=== PATIENT | male | born 1965 | race Caucasian/White ===

== ENCOUNTER 2023-12-23 03:35 | Inpatient (IN) | payer BC ==
[~2023-12-23] VITALS: Ht 177.8 cm; Wt 115.0 kg
[2023-12-23] VITALS (13 sets, daily range): BP systolic 108–148; BP diastolic 77–90; PULSE 53–110; RESP 9–32; TEMP 99.3; O2SAT 91–100
[2023-12-23 04:12] LABS: EOSINOPHILS # (AUTO) 0.1 X10'3 (0-0.9); MONOCYTES # (AUTO) 0.2 X10'3 (0-0.9); NEUTROPHILS # (AUTO) 1.3 X10'3 (1.8-7.7); PLATELET COUNT 64 X10'3 (140-440)
[2023-12-23 04:14] LABS: BASOPHILS % (AUTO) 0 % (0-1); EOSINOPHILS % (AUTO) 0.8 % (0-6); HEMATOCRIT 43.4 % (42.0-52.0); HEMOGLOBIN 14.1 g/dl (14.0-17.9); LYMPHOCYTES # (AUTO) 8.4 X10'3 (1.1-4.8); LYMPHOCYTES % (AUTO) 83.4 % (21-51); MEAN CORPUSCULAR HEMOGLOBIN 30.9 PG (27.0-31.0); MEAN CORPUSCULAR HGB CONC 32.4 g/dL (33.0-36.5); MEAN CORPUSCULAR VOLUME 95.2 FL (78-98); MEAN PLATELET VOLUME 9.1 FL (7.4-10.4); MONOCYTES % (AUTO) 2.4 % (2-12); NEUTROPHILS % (AUTO) 13.4 % (42-75); RED BLOOD COUNT 4.56 X10'6 (4.70-6.10); RED CELL DISTRIBUTION WIDTH 14.6 % (11.5-14.5)
[2023-12-23 04:20] LABS: ALBUMIN 2.4 G/DL (3.4-5.0); ANION GAP 17 (8-16); BLOOD UREA NITROGEN 10 MG/DL (7-18); BUN/CREATININE RATIO 5.9 (10.0-20.0); CALCIUM 8.6 MG/DL (8.5-10.1); CHLORIDE 108 MMOL/L (99-107); CREATININE 1.69 MG/DL (0.60-1.10); GLUCOSE 227 MG/DL (70-104); PRO BRAIN NATRIURETIC PEPTIDE 155 PG/ML (0-125); SODIUM 147 MMOL/L (135-145); TOTAL CARBON DIOXIDE 22.4 MMOL/L (24-32); eCRCL 49 ML/MIN; eGFR 42 ML/MIN
[2023-12-23 04:22] LABS: POTASSIUM 3.4 MMOL/L (3.5-5.1)
[2023-12-23 04:44] LABS: TOTAL CELLS COUNTED 100
[2023-12-23 04:52] LABS: PLATELET ESTIMATE DECREASED; SMUDGE CELLS 1+
[2023-12-23] MEDS ORDERED: rocuronium 10mg/ml inj IV ONE (05:00)
[2023-12-23 05:26] LABS: ABG BASE EXCESS -12.7 mmol/L (-2.0-2.0); ABG HCO3 18.9 mmol/L (22.0-26.0); ABG OXYGEN SATURATION 78.3 % (94-97); ABG PCO2 (T) 66.9 mmHg (35.0-48.0); ABG PH (T) 7.062 (7.340-7.440); ABG PO2 (T) 55.2 mmHg (75.0-100.0); ALLEN'S TEST Modified; FCOHb 0.3 % (0.0-3.9); FHHb 21.6 % (0.0-5.0); FMetHb 0.3 % (0.0-1.5); FO2Hb 77.8 % (94-97); MODE PRVC; PEEP 5 cm H2O; RESPIRATORY RATE 16 b/min; TIDAL VOLUME 450 mL; TOTAL HEMOGLOBIN 14.8 G/dl (14.0-17.9)
[2023-12-23] MEDS: heparin 10,000 units/1 ML INJ IV PRN (06:36)
[2023-12-23] MEDS: MESSAGE TO NURSING IV ONE (06:36)
[2023-12-23] MEDS: heparin 10,000 units/1 ML INJ IV ONE (06:36)
[2023-12-23] MEDS ORDERED: morphine 2 MG/ML inj. syringe IV PRN (06:40)
[2023-12-23] MEDS ORDERED: ondansetron/PF 4mg/2ml inj IV PRN (06:40)
[2023-12-23] MEDS ORDERED: morphine 4 MG/ML inj SYRINge IV PRN (06:40)
[2023-12-23] MEDS ORDERED: acetaminophen 325mg tablet PO PRN ×2 (06:40)
[2023-12-23] MEDS: normal saline 1000ml 1,000 ML IV SCH (06:40)
[2023-12-23] MEDS ORDERED: magnesium hydroxide 30ml (MOM) UD suspension PO PRN (06:40)
[2023-12-23] MEDS ORDERED: FURO-150 PO (06:56)
[2023-12-23] MEDS ORDERED: SACU1TAB PO (06:56)
[2023-12-23] MEDS ORDERED: SPIR25TA5 PO (06:56)
[2023-12-23] MEDS ORDERED: CARV-50 PO (06:56)
[2023-12-23 07:22] LABS: ABG BASE EXCESS -7.7 mmol/L (-2.0-2.0); ABG HCO3 20.8 mmol/L (22.0-26.0); ABG PCO2 (T) 54.3 mmHg (35.0-48.0); ABG PH (T) 7.201 (7.340-7.440); ABG PO2 (T) 84.8 mmHg (75.0-100.0); ALLEN'S TEST Modified; MODE VENT - PRVC; PEEP 10 cm H2O; RESPIRATORY RATE 20 b/min; TIDAL VOLUME 450 mL
[2023-12-23] MEDS: heparin 25,000 UNIT/250ml bag 250 ML IV PRN (07:31)
[2023-12-23] MEDS: epiNEPHrine inj 5 MG in normal saline 250ml IV soln 245 ML IV SCH (08:01)
[2023-12-23 09:00] LABS: APTT 40 SECONDS (22-32); INR 2.5 INR; PROTHROMBIN TIME 24.5 SECONDS (9.0-12.0)
[2023-12-23 09:43] LABS: ALANINE AMINOTRANSFERASE 584 U/L (12-78); ALBUMIN 2.6 G/DL (3.4-5.0); ALBUMIN/GLOBULIN RATIO 0.9 (1.1-1.5); ALKALINE PHOSPHATASE 132 IU/L (46-116); ANION GAP 14 (8-16); BILIRUBIN,TOTAL 1.7 MG/DL (0.1-1.0); BLOOD UREA NITROGEN 19 MG/DL (7-18); CALCIUM 8.3 MG/DL (8.5-10.1); CHLORIDE 110 MMOL/L (99-107); GLUCOSE 239 MG/DL (70-104); SODIUM 147 MMOL/L (135-145); TOTAL CARBON DIOXIDE 22.7 MMOL/L (24-32); TOTAL PROTEIN 5.6 G/DL (6.4-8.2); eCRCL 40 ML/MIN; eGFR 33 ML/MIN
[2023-12-23 09:51] LABS: ASPARTATE AMINO TRANSFERASE 1518 U/L (10-37); POTASSIUM 3.5 MMOL/L (3.5-5.1)
[2023-12-23] MEDS: epiNEPHrine inj 10 MG in normal saline 250ml IV soln 240 ML IV SCH (11:16)
[2023-12-23] MEDS: LORazepam 2 mg/ml vial IV PRN (11:37)
[2023-12-23] MEDS: morphine 10mg/ml inj. IV PRN (11:37)
== END 2023-12-23 13:15 | DRG 308 ==
LOC: ER 03:36 → ED HOLD 06:43 → CICU 2S 09:54
PROVIDERS: ADMIT Internal Medicine Critical Care Medicine; ATTEND Internal Medicine Critical Care Medicine
PROC: 5A12012 Performance of Cardiac Output, Single, Manual (ICD-10-PCS; principal; 2023-12-23)
PROC: 5A1935Z Respiratory Ventilation, Less than 24 Consecutive Hours (ICD-10-PCS; 2023-12-23)
PROC: 0BH17EZ Insertion of Endotracheal Airway into Trachea, Via Natural or Artificial Opening (ICD-10-PCS; 2023-12-23)
DX: I49.01 Ventricular fibrillation (principal); J96.01 Acute respiratory failure with hypoxia; U07.1 COVID-19; R57.9 Shock, unspecified; G93.1 Anoxic brain damage, not elsewhere classified; E87.4 Mixed disorder of acid-base balance; I42.9 Cardiomyopathy, unspecified; I46.9 Cardiac arrest, cause unspecified; Z66 Do not resuscitate; Z51.5 Encounter for palliative care
CPT/HCPCS: 36415; 36600; 71045; 80048; 80053; 82803; 82948; 83880; 84484; 85007; 85018; 85025; 85610; 85730; 93005; 93306; 94002; 94760; 99285; A6213; C1751; C1758; G0378; J0171; J0282; J0461; J2060; J2274; J3490; J7030; J7050